=== PATIENT | female | born 1970 | race Caucasian/White ===

== ENCOUNTER 2023-06-21 09:34 | Outpatient (CLI) | payer BC | END 2023-06-21 09:35 | disposition home or self-care (01) | LOC: BICRAD 09:34 | PROVIDERS: ATTEND Nurse Practitioner Family | DX: R05.9 Cough, unspecified (principal) | CPT/HCPCS: 71046 ==

== ENCOUNTER 2023-10-23 08:15 | Outpatient (CLI) | payer BC ==
[2023-10-23] MEDS ORDERED: Iopamidol-370 76% 500 ML MDV (1 ML CHARGE) ONE (10:39)
== END 2023-10-23 08:16 | disposition home or self-care (01) ==
LOC: CT 08:15
PROVIDERS: ATTEND Nurse Practitioner Family
DX: R91.1 Solitary pulmonary nodule (principal)
CPT/HCPCS: 71260; Q9967